=== PATIENT | male | born 1990 | race Caucasian/White ===

== ENCOUNTER 2022-10-15 08:09 | Outpatient (CLI) | payer OTHER, SELFPAY ==
--- NOTE | 2022-11-11 08:40 | WPDSLEEPSTUD ---
Sleep Study Date of Study: 10/15/22 Ordering Provider: Jose M Douglass, Interpreting Physician: Delaney Nichols MD Sleep Study Type: Split Polysomnogram Height: 1.78 m Weight: 136.078 kg Body Mass Index: 43.0 Neck Circumference (inches): 19 [place]: 16 Reason for Sleep Study Hypersomnolence * 10/08/2018, split night protocol, baseline AHI 126.8 lowest desaturation 69%, optimal pressure 19 cm. BMI was 48.7 weight was 360 lb. Sleep History Wing Lisa is a 32-year-old man with a history of obstructive sleep apnea treated with CPAP. He has lost significant weight. The pressure now feels too high and he needs 4 to be adjusted. He tried using an auto PAP but it did not work well for him. He also tried an oral appliance but it did not seem to work as well as a CPAP. He wakes up during the night including in the natural resources manager hours. He has excessive daytime sleepiness. He rarely awakens from sleep feeling short of breath. He frequently awakens at night with heartburn, belching or coughing. He constantly snores loudly enough that others complain about it. He always has trouble sleeping with a cold. He rarely wakes up gasping for breath at night. He frequently has breathing problems at night observed by others. He rarely sweats excessively at night. He does not complain of his heart beating irregularly night. He frequently falls asleep during the day, frequently falls asleep involuntarily but never while driving. He does not have loss of muscle tone with strong emotion. He occasionally has daytime difficulties due to excessive sleepiness. He does not feel paralyzed on waking or falling asleep. He rarely has vivid dreamlike scenes on waking or falling asleep. He rarely feels afraid to go to sleep. He rarely has nightmares. He occasionally remembers his dreams. He constantly has racing thoughts. He frequently feels sad or depressed. He constantly has anxiety, occasionally has muscular tension. He rarely notices parts of her body jerking, rarely kicks at night. He occasionally has morning jaw pain. He rarely grinds his teeth during sleep. He rarely is bothered by pain during the day, rarely awakened by pain at night. Occasionally wakes up feeling stiff in the morning with sore achy muscles and pain in the neck and spine. He has headaches fatigue memory problems concentration difficulties. Normal bedtime 10:00 p.m. falling asleep within 1/2 hour waking multiple times at night at least 8-10 times. While awake she will roll over try to go back to sleep and possibly check the time when his phone. He wakes the morning at 4:30 a.m.. On weekends, sleep bedtime is between 10:00 p.m. 11:00 p.m. and the wake time is 6:00 a.m.. He is getting 5-6 hours of sleep at night but it is not always continuous and it is not restful. He does not take naps in the afternoon or evening. A short nap is not refreshing. He is usually drowsy for 3 hours or longer after waking. Habits: Quit tobacco 6 years ago. No caffeine. No alcohol. He does endorse using recreational substances. [facility] Past Medical History Medical History (Updated 11/11/22 @ 09:00 by Delaney Nichols MD) Asthma AVELINO (obstructive sleep apnea) Social History Social History (Updated 11/11/22 @ 09:01 by Delaney Nichols MD) Smoking status: Former smoker Alcohol use details: none Sleep Procedure This test was performed using the [employer] Sleep[employer]il Monkey Butt multiple channel system including EOG, EEG, submental EMG, EKG, nasal and oral airflow using thermistors and nasal pressure sensors, chest and abdominal belts for body position data, and pulse oximetry. Video monitoring was also performed. The study was scored using CMS guidelines. No sleep aid was taken. After the baseline portion the patient met criteria for a titration using a medium ResMed Quattro fullface mask with heated humidity, initial pressure was CPAP 12 0.3 as the patient was already on CPAP at home. He re
[2022-11-11 10:10] VITALS: BMI 43.0
== END 2022-10-16 06:00 | disposition home or self-care (01) ==
LOC: ANHCSM 08:12
PROVIDERS: Visit Provider Internal Medicine Pulmonary Disease
DX: G47.33 Obstructive sleep apnea (adult) (pediatric) (principal)
CPT/HCPCS: 95811

== ENCOUNTER 2025-05-03 10:46 | Outpatient (CLI) | payer OTHER, SELFPAY ==
--- NOTE | ~2025-05-03 | XR_ITS ---
Clinical Indication: Eosinophilia PA and lateral views of the chest: Comparison: None Findings: The lungs are clear, without evidence of focal consolidation or pleural effusion. Cardiome diastinal silhouette is within normal limits. Bones and soft tissues are unremarkable. Impression: Normal chest. Reviewed, dictated and finalized at location . Impression: Normal chest.
== END 2025-05-03 10:47 | disposition home or self-care (01) ==
LOC: MICIMG 10:48
PROVIDERS: PCP Internal Medicine; Visit Provider Internal Medicine
DX: D72.10 Eosinophilia, unspecified (principal)
CPT/HCPCS: 71046

== ENCOUNTER 2025-06-30 10:20 | Outpatient (CLI) | payer OTHER, SELFPAY ==
--- NOTE | 2025-06-30 10:27 | ECG_ITS ---
Test Date: 2025-06-30 10:41:23 Measurements Intervals [place] Rate: 58 P: 11 AR: 137 QRS: 30 QRSD: 107 T: 18 QT: 413 QTc: 407 Interpretive Statements SINUS BRADYCARDIA LOW QRS VOLTAGE IN PRECORDIAL LEADS BORDERLINE ECG No previous ECG available for comparison Electronically Signed On 06-30-2025 11:13:12 CDT by Boubacar Heath D.O.
--- OUTSIDE RECORDS SUMMARY | 2025-06-30 10:28 | XMS_ITS | Clinical Summary ---
Author Organization [facility] [place] Address [facility] [place] [address] Care Team Providers Care Grinder Set Up Operator Thread Tool Name Role Phone Lizet Andino MD Primary Care Provider [phone] Allergies Active Allergy Reactions Criticality Noted Date Comments Montelukast Shortness of Breath/Wheezing High 2022 Medications cpap medical deviceIndication s:AVELINO (obstructive sleep apnea) CPAP @ 19 wp with heated humidifier. Length of need:99 months; full face mask with headgear every 6 months; mask only every 3 months; 2 cushions per month; Tubing heated 1 every 3 months, water chamber 1 every 6 months, chin strap 1 every 6 months, filters disposable 2 per month, filters reusable 1 per 6 months.. 1 Each 8 Active MULTIVITAMIN ORAL Take by mouth. supp Active CHOLECALCIFEROL, VITAMIN D3, ORAL Take by mouth. Active albuterol sulfate HFA 90 mcg/actuation aerosol inhalerIndicatio ns:Mild intermittent asthma without complication Take 2 Puffs by inhalation every 4 hours as needed for Shortness of Breath. 8.5 Gram 5 Active budesonide-formo teroL (SYMBICORT) 160-4.5 mcg/actuation HFA Aerosol InhalerIndicatio ns:Asthma, unspecified asthma severity, unspecified whether complicated, unspecified whether persistent Take 2 Puffs by inhalation 2 times daily. 30.6 Gram 3 5 Active fexofenadine (SARAH) 180 mg tablet Take 1 Tablet (180 mg) by mouth daily. 90 Tablet 5 Active budesonide-formo teroL (SYMBICORT) 160-4.5 mcg/actuation HFA Aerosol InhalerIndicatio ns:Asthma, unspecified asthma severity, unspecified whether complicated, unspecified whether persistent Take 2 Puffs by inhalation 2 times daily. 30.6 Gram 3 4 025 Discontin ued(Reord er) fexofenadine (SARAH) 180 mg tablet Take 1 Tablet (180 mg) by mouth daily. 90 Tablet 5 025 Discontin ued(Reord er) Active Problems Problem Noted Date Diagnosed Date Eosinophilia 12/02/2024 Elevated LDL cholesterol level 12/07/2020 Recurrent major depressive disorder, in partial remission 11/09/2020 Asthma 03/17/2019 Anxiety 01/04/2019 Overview (08/28/2020): Recently started taking medication. Obstructive sleep apnea syndrome 12/01/2018 Severe obesity (BMI >= 40) 11/30/2018 Prediabetes Resolved Problems Problem Noted Date Diagnosed Date Resolved Date Prediabetes 01/09/2020 08/28/2020 Umbilical hernia without obs truction and without gangrene 03/31/2019 09/05/2021 Current moderate episode of major depressive disorder without prior episode 01/04/2019 9 Periumbilical abdominal pain 01/04/2019 11/09/2020 Snoring 09/17/2018 06/14/2019 Morbid obesity with body mas s index of 40.0-49.9 09/17/2018 01/29/2022 Encounters Date Type Department Care Team Description 06/26/2025 1:40 PM CDT Procedure visit [facility] [place] [address] [place] [phone] Issue of repeat prescription for medication (Primary Dx) 06/26/2025 Refill [facility] [place] [address] [place] [phone] Misti Bonilla, MICHAEL 06/21/2025 External Device Data ST[facility] ABSTRACTION Provider, Abstract 06/20/2025 External Device Data [place] ABSTRACTION Provider, Abstract 06/16/2025 Refill [facility] at [facility] [address] [place] [address] Misti Bonilla ANP Asthma, unspecified asthma severity, unspecified whether complicated, unspecified whether persistent 05/18/2025 External Device Data ST[place] ABSTRACTION Provider, Abstract 05/17/2025 External Device Data ST[place] ABSTRACTION Provider, Abstract 05/17/2025 External Device Data [place] ABSTRACTION Provider, Abstract 05/08/2025 Results Follow-Up [facility] [address] [place] [address] Misti Bonilla, MICHAEL XR CHEST PA AND LATERAL 2 VW 05/08/2025 Orders Only [facility] [address] [place] [phone] Reba Jacome Eosinophilia, unspecified type 04/19/2025 External Device Data ST[place] ABSTRACTION Provider, Abstract 04/19/2025 External Device Data [place] ABSTRACTION Provider, Abstract 04/07/2025 Results Follow-Up [facility] [address] [place] [phone] Lizet Andino MD CBC WITH DIFFERENTIAL, HEMOGLOBIN A1C 04/06/2025 8:00 AM CDT Office Visit [facility] [place] [address] [place] [phone] Lizet Andino MD Eosinophilia, unspecified type (Primary Dx); Moderate persistent asthma, unspecified whether complicated; Prediabetes; Severe obesity (BMI >= 40) ([facility]) 04/04/2025 10:40 AM CDT Procedure visit [facility] [address] [place] [address] Issue of repeat prescription for medication (Primary Dx) 04/04/2025 External Device Data STL ABSTRACTION Provider, Abstract 04/03/2025 Refill [facility] [address] [place] [phone] Misti Bonilla ANP from Last 3 Months Immunizations Immunization Administration Dates Next Due (ADACEL/BOOSTRIX)(10 YR UP) TDAP VACCINE, 0.5ML, IM 08/27/2018 (PFIZER)(12 YR UP) COVID-19 VACCINE - EMERGENCY USE AUTHORIZATION, MRNA, [id number](PF) 30 MCG/0.3 ML IM SUSP 01/24/2021,01/03/2021 INFLUENZA VACCINE QUADRIVALENT 3 YR UP PF IM INFLUENZA VACCINE QUADRIVALENT 6 MOS UP IM 08/09,08/09/2018 INFLUENZA VACCINE QUADRIVALENT 6 MOS UP PF IM ,08/02/2020 INFLUENZA VACCINE TRIVALENT SPLIT VIRUS, (6 MOS UP), 0.5ML (PF), IM 08/03/2024 Family History Medical History Relation Name Comments Anxiety Father Randy Lisa Asthma Father Randy Lisa COPD Father Randy Lisa Diabetes Father Randy Lisa Respiratory Disease Father Randy Lisa COPD Kidney Disease Maternal Grandfather Raúl Rojas Unknown Maternal Grandfather Raúl Rojas Heart Attack Maternal Grandmother Depression Mother Melissa Acevedo Cancer Paternal Grandfather Randy Lisa Sr. Bra in cancer, lung cancer, bone cancer, and pancreatic cancer. Lung Cancer Paternal Grandfather Randy Lisa Sr. Unknown Paternal Grandmother Keshia Lisa Anxiety Sister Relation Name Status Comments Father Randy Lisa Alive Maternal Grandfather Raúl Rojas Maternal Grandmother Mother Melissa Acevedo Alive Paternal Grandfather Randy Lisa Sr. Paternal Grandmother Keshia Lisa Sister Alive Social History Tobacco Use Types Packs/Day Years Used Date Smoking Tobacco: Former Cigarettes Q uit: 08/23/2017 Smokeless Tobacco: Never Alcohol Use Standard Drinks/Week Comments Yes 0 (1 standard drink = 0.6 oz pure alcohol) I rarely drink at all. A few drinks a month. Sex and Gender Information Value Date Recorded Sex Assigned at Male 11/18/2023 10:35 AM CUT FILER Legal Sex Male 9:10 AM CDT Gender Identity Male 11/18/2023 10:35 AM CUT FILER Sexual Orientation Straight 11/18/2023 10 :35 AM CUT FILER Last Filed Vital Signs Vital Sign Reading Time Taken Comments Blood Pressure 118/72 04/06/2025 7:57 AM CDT Pulse 61 04/06/2025 7:57 AM CDT Temperature 36.5 C (97.7 F) 04/06/2025 7:57 AM CDT Respiratory Rate 18 04/06/2025 7:57 AM CDT Oxygen Saturation 98% 04/06/2025 7:57 AM CDT Inhaled Oxygen Concentration - - Weight 128.8 kg (284 lb) 04/06/2025 7:57 AM CDT Height 182.9 cm (6') 04/06/2025 7:57 AM CDT Body Mass Index 38.52 04/06/2025 7:57 AM CDT Plan of Treatment Upcoming Encounters Date Type Department Care Team (Late st Contact Info) Description 07/06/2025 8:00 AM CDT Office Visit [facility] [place] [address] [place] [address] Lizet Andino MD [address] [place] [address] 09/20/2025 8:00 AM CUT FILER Office Visit [facility] [place] [address] [place] [address] Lizet Andino MD [address] [place] [address] Health Maintenance Due Date Last Done Comments HEPATITIS B VACCINES (1 of 3 - 19+ 3-dose series) 2009 HPV VACCINES (1 - 3-dose SCD M series) 2017 COVID-19 Vaccine (3 - 2023-2 5 season) 2024 01/24/2021, 01/03/2021 INFLUENZA VACCINE (#1) 2025 , 07/30/2023, 08/15/2022, Additional history exists DTAP/TDAP/TD VACCINES (2 - T d or Tdap) 08/27/2028 08/27/2018 Medical Devices Implanted Type Area English Tutor Device Identifier Shelf Expiration Date Model / Serial / Lot Mesh Ventralex 3.2in Lrg Circ [id number] - [id number] Implanted:Qty : 1 on 08/23/2021 by Juan Griffin MD at [facility] Mesh N/A: Umbilical CR [employer] [id number] 04/29/2023 [id number] / / [id number] Procedures Procedure Name Priority Date/Time Associated Diagnosis Comments XR CHEST PA AND LATERAL 2 VW Routine 05/03/2025 Eosinophilia, unspecified type HEMOGLOBIN A1C Routine 04/06/2025 8:38 AM CDT Prediabetes CBC WITH DIFFERENTIAL Routine 04/06/2025 8:38 AM CDT Eosinophilia, unspecified type from Last 3 Months Results * XR CHEST PA AND LATERAL 2 VW (05/03/2025) Anatomical Region Laterality Modality Chest Other us Lizet Andino MD DIAGNOSTIC IMAGING ORDERABLES Final Result * (ABNORMAL) CBC WITH DIFFERENTIAL (04/06/2025 8:38 AM CDT) WBC 7.1 3.8 - 10.8 Thousand/ uL [facility] RBC 4.75 4.20 - 5.80 Million/u L [facility] HEMOGLOBIN 13.7 13.2 - 17.1 g/dL [facility] HEMATOCRIT 43.6 38.5 - 50.0 % [facility] MCV 91.8 80.0 - 100.0 fL [facility] MCH 28.8 27.0 - 33.0 pg [facility] MCHC 31.4(L) 32.0 - 36.0 g/dL [facility] Comment: For adults, a slight decrease in the calculated MCHC value (in the range of 30 to 32 g/dL) is most likely not clinically significant; however, it should be interpreted with caution in correlation with other red cell parameters and the patient's clinical condition. RDW 13.7 11.0 - 15.0 % [facility] PLATELETS 286 140 - 400 Thousand/ uL [facility] MPV 11.0 7.5 - 12.5 fL [facility] NEUTROPHIL ABSOLUTE 4,558 1,500 - 7,800 cells/uL [facility] LYMPHOCYTE ABSOLUTE 1,385 850 - 3,900 cells/uL [facility] MONOCYTE ABSOLUTE 447 200 - 950 cells/uL [facility] EOSINOPHIL ABSOLUTE 667(H) 15 - 500 cells/uL [facility] BASOPHILS ABSOLUTE 43 0 - 200 cells/uL [facility] NEUTROPHIL 64.2 % [facility] LYMPHOCYTES 19.5 % [facility] MONOCYTE 6.3 % [facility] EOSINOPHILS 9.4 % [facility] BASOPHILS 0.6 % [facility] Comment: Test Performed at: [place] [address] [phone] [facility] Best Blood 04/06/2025 8:38 AM CDT 04/07/2025 2:15 AM CDT Lizet Andino MD HEMATOLOGY ORDERABLES Final Re sult [facility] [phone] [place] [address] [address] [phone] * HEMOGLOBIN A1C (04/06/2025 8:38 AM CDT) HEMOGLOBIN A1C 5.6 <5.7 % of total Hgb [facility] Comment: For the purpose of screening for the presence of diabetes: <5.7% Consistent with the absence of diabetes 5.7-6.4% Consistent with increased risk for diabetes (prediabetes) > or =6.5% Consistent with diabetes This assay result is consistent with a decreased risk of diabetes. Currently, no consensus exists regarding use of hemoglobin A1c for diagnosis of diabetes in children. According to [place] Diabetes Association (ADA) guidelines, hemoglobin A1c <7.0% represents optimal control in non- diabetic patients. Different metrics may apply to specific patient populations. Standards of Medical Care in Diabetes(ADA). ESTIMATED AVERAGE GLUCOSE (MG/DL) 114 mg/dL [facility] ESTIMATED AVERAGE GLUCOSE (MMOL/L) 6.3 mmol/L [facility] Comment: Test Performed at: [facility] [address] [place] [phone] Katiana Best Blood 04/06/2025 8:38 AM CDT 04/07/2025 2:15 AM CDT us Lizet Andino MD CHEMISTRY ORDERABLES Final Res ult [facility] [phone] [facility] [address] [place] [phone] from Last 3 Months Insurance [employer] ALLEGIANCE OPEN ACCESS ALLEGIANCE OPEN ACCESS TAMIE WELLS [phone] * Guarantor: [employer] Account Type Relation to Patient Date of Phone Billing Address Corporate Employer ATTN: ABDIRAHMNA HECK [address] [address] Advance Directives For more information, please contact: [phone] * Full Code (Latest Code Status on File) Date Activated Date Inactivated Comments 08/23/2021 9:50 AM 08/23/2021 7:06 PM * Full Code Date Activated Date Inactivated Comments 08/23/2021 9:40 AM 08/23/2021 9:50 AM Care Teams Grinder Set Up Operator Thread Tool Relationship Specialty Start Date End Date Lizet Andino MD [address] [place] [address] PCP - General Internal Medicine 05/09/24
--- OUTSIDE RECORDS SUMMARY | 2025-06-30 10:28 | XMS_ITS | Encounter Summary ---
Author Organization [facility] Address [address] [place] [address] Care Team Providers Care Software Tester Name Role Phone Lizet Andino MD Primary Care Provider [phone] Encounter Details Date Type Department Care Team (Late st Contact Info) Description 05/08/2025 Results Follow-Up [facility] at [facility] [place] [address] [place] [address] Misti Bonilla, ANP [address] [facility] [address] [place] [address] XR CHEST PA AND LATERAL 2 VW Social History Tobacco Use Types Packs/Day Years Used Date Smoking Tobacco: Former Cigarettes Q uit: 08/23/2017 Smokeless Tobacco: Never Alcohol Use Standard Drinks/Week Comments Yes 0 (1 standard drink = 0.6 oz pure alcohol) I rarely drink at all. A few drinks a month. Sex and Gender Information Value Date Recorded Sex Assigned at Male 11/18/2023 10:35 AM CHURCH ORGANIST Legal Sex Male 9:10 AM CDT Gender Identity Male 11/18/2023 10:35 AM CHURCH ORGANIST Sexual Orientation Straight 11/18/2023 10 :35 AM CHURCH ORGANIST documented as of this encounter Miscellaneous Notes * Result Encounter Note - Demi Rogers RN - 05/08/2025 8:22 AM CDT Called patient and relayed message regarding CXR results. Patient verbalized understanding. * Result Encounter Note - Misti Bonilla ANP - 05/08/2025 7:53 AM CDT Contact patient regarding result. Advise pt CXR is normal. Continue inhaler treatment and FU as planned. documented in this encounter Plan of Treatment Upcoming Encounters Date Type Department Care Team (Late st Contact Info) Description 07/06/2025 8:00 AM CDT Office Visit [facility] [place] [address] [place] [phone] Lizet Andino MD [address] [place] [address] 09/20/2025 8:00 AM CHURCH ORGANIST Office Visit [facility] at [facility] [place] [address] [place] [phone] Lizet Andino MD [address] [place] [phone] documented as of this encounter Visit Diagnoses Not on filedocumented in this encounter Additional Health Concerns Assessment Noted Time PHQ-9 Depression Total Score: 4 01/05/20 25 11:00 AM CHURCH ORGANIST documented as of this encounter Care Teams Software Tester Relationship Specialty Start Date End Date Lizet Andino MD [address] [place] [phone] PCP - General Internal Medicine 05/09/24 documented as of this encounter
--- OUTSIDE RECORDS SUMMARY | 2025-06-30 10:28 | XMS_ITS | Clinical Summary ---
Author Organization [facility] [employer] Address [address] [place] [address] Care Team Providers Care Environmental Technical Officer Name Role Phone VelaKatelin HISTOLOGIC TECHNICIAN-CREDIT DIRECTOR Primary Care Pro vider Unavailable Source Comments [facility],non-owned Affiliates and Associated Physician Practices is amultiple site organization consisting of ambulatory clinics and hospital sitesin [place], [place], [place] and [place]. This disclosure is being madepursuant to the Care Everywhere program and may not contain all information available regarding this patient. Last updated 18.[facility] [employer] Allergies Active Allergy Reactions Criticality Noted Date Comments Montelukast 09/16/2016 Medications * Be aware that medications may not be up to date on this document. Alwaysverify current medications with the patient. No known medications Active Problems Problem Noted Date Diagnosed Date Prediabetes 01/09/2020 Class 3 severe obesity due t o excess calories with serious comorbidity and body mass index (BMI) of 45.0 to 49.9 in adult 01/09/2020 Umbilical hernia without obstruction and without gangrene 03/31/2019 Asthma 03/17/2019 Obstructive sleep apnea syndrome 12/01/2018 Social History Tobacco Use Types Packs/Day Years Used Date Smoking Tobacco: Never Smokeless Tobacco: Never Sex and Gender Information Value Date Recorded Sex Assigned at Not on file Legal Sex Male 1:54 PM MAINTAINER PLANT Gender Identity Not on file Sexual Orientation Not on file Last Filed Vital Signs Vital Sign Reading Time Taken Comments Blood Pressure 126/82 01/03/2020 10:27 AM MAINTAINER PLANT Pulse 74 01/03/2020 10:27 AM MAINTAINER PLANT Temperature 36.6 C (97.9 F) 09/23/2016 12:40 PM MAINTAINER PLANT Respiratory Rate 20 09/23/2016 12:40 PM MAINTAINER PLANT Oxygen Saturation - - Inhaled Oxygen Concentration - - Weight 160.8 kg (354 lb 8 oz) 01/03/2020 10:27 A M MAINTAINER PLANT Height 179.7 cm (5' 10.75) 01/03/2020 10:27 AM MAINTAINER PLANT Body Mass Index 49.79 01/03/2020 10:27 AM MAINTAINER PLANT Plan of Treatment Health Maintenance Due Date Last Done Comments HIV SCREENING 2005 HEPATITIS C SCREENING 11/02/2008 DTAP/TDAP/TD VACCINES (1 - Tdap) 2009 HEPATITIS B VACCINE (1 of 3 - 19+ 3-dose series) 2009 PNEUMOCOCCAL VACCINE (1 of 2 - PCV) 2009 HPV VACCINE (1 - 3-dose SCDM series) 2017 COVID-19 VACCINE (1 - 2023-2 5 season) 2024 DEPRESSION SCREENING 11/02/2024 INFLUENZA VACCINE (#1) 2025 9, 08/09/2018 ZOSTER VACCINE (1 of 2) 2040 HIB VACCINE Aged Out No longer eligi ble based on patient's age to complete this topic MENINGOCOCCAL (Group B) VACCINE SHARED DECISION-MAKING Aged Out No longer eligible based on patient's age to complete this topic MENINGOCOCCAL GROUPS A/C/Y/W VACCINE Aged Out No longer eligible b ased on patient's age to complete this topic [place] [address] [place] [address] Care Teams Environmental Technical Officer Relationship Specialty Start Date End Date Katelin Vela, HISTOLOGIC TECHNICIAN-CREDIT DIRECTOR PCP - General Nurse Practitioner 01/03/20
== END 2025-06-30 10:21 | disposition home or self-care (01) ==
LOC: ANHIMG 10:22 → ANHCARD 10:27
PROVIDERS: PCP Internal Medicine; Visit Provider Nurse Practitioner Family
DX: I49.9 Cardiac arrhythmia, unspecified (principal)
CPT/HCPCS: 93005

== ENCOUNTER 2025-07-24 09:17 | Outpatient (CLI) | payer OTHER, SELFPAY ==
--- OUTSIDE RECORDS SUMMARY | 2025-07-24 10:07 | XMS_ITS | Clinical Summary ---
Author Organization [facility] [employer] Address [address] [place] [address] Care Team Providers Care Battery Repairer Name Role Phone VelaKatelin TRAINING ADMINISTRATOR-PROCUREMENT ENGINEER Primary Care Pro vider Unavailable Source Comments [facility],non-owned Affiliates and Associated Physician Practices is amultiple site organization consisting of ambulatory clinics and hospital sitesin [place], [place], [place] and [place]. This disclosure is being madepursuant to the Care Everywhere program and may not contain all information available regarding this patient. Last updated 18.[facility] [employer] Allergies Active Allergy Reactions Criticality Noted Date [...] on file Legal Sex Male 1:54 PM TELEPHONE CLAIMS REPRESENTATIVE Gender Identity Not on file Sexual Orientation Not on file Last Filed Vital Signs Vital Sign Reading Time Taken Comments Blood Pressure 126/82 01/03/2020 10:27 AM TELEPHONE CLAIMS REPRESENTATIVE Pulse 74 01/03/2020 10:27 AM TELEPHONE CLAIMS REPRESENTATIVE Temperature 36.6 C (97.9 F) 09/23/2016 12:40 PM TELEPHONE CLAIMS REPRESENTATIVE Respiratory Rate 20 09/23/2016 12:40 PM TELEPHONE CLAIMS REPRESENTATIVE Oxygen Saturation - - Inhaled Oxygen Concentration - - Weight 160.8 kg (354 lb 8 oz) 01/03/2020 10:27 A M TELEPHONE CLAIMS REPRESENTATIVE Height 179.7 cm (5' 10.75) 01/03/2020 10:27 AM TELEPHONE CLAIMS REPRESENTATIVE Body Mass Index 49.79 01/03/2020 10:27 AM TELEPHONE CLAIMS REPRESENTATIVE Plan of Treatment Health Maintenance Due Date Last Done Comments HIV SCREENING 2005 HEPATITIS C SCREENING 11/02/2008 DTAP/TDAP/TD VACCINES (1 - Tdap) 2009 HEPATITIS B VACCINE (1 of 3 - 19+ 3-dose series) 2009 PNEUMOCOCCAL VACCINE (1 of 2 - PCV) 2009 HPV VACCINE (1 - 3-dose SCDM series) 2017 DEPRESSION SCREENING 11/02/2024 COVID-19 VACCINE (1 - 2023-2 5 season) 2025 INFLUENZA VACCINE (#1) 2025 9, 08/09/2018 ZOSTER [...] patient's age to complete this topic [place] [address] [address] [address] [place] [address] Care Teams Battery Repairer Relationship Specialty Start Date End Date Katelin Vela, TRAINING ADMINISTRATOR-PROCUREMENT ENGINEER PCP - General Nurse Practitioner 01/03/20
--- OUTSIDE RECORDS SUMMARY | 2025-07-24 10:07 | XMS_ITS | Clinical Summary ---
Author Organization [employer] [place] Address [facility] [place] [address] Care Team Providers Care Cone Winder Name Role Phone Lizet Andino MD Primary Care Provider Allergies Active Allergy Reactions Criticality Noted Date [...] by mouth daily. 90 Tablet 5 Active fexofenadine (SARAH) 180 mg tablet Take 1 Tablet (180 mg) by mouth daily. 90 Tablet 025 Discontin ued(Reord er) Active Problems Problem [...] Encounters Date Type Department Care Team Description 07/18/2025 External Device Data ST[facility] ABSTRACTION Provider, Abstract 07/13/2025 Results Follow-Up [facility] at [facility] [address] [place] [address] Lizet Andino MD CBC WITH DIFFERENTIAL 07/06/2025 8:00 AM CDT Office Visit [facility] [place] [address] [place] [phone] Lizet Andino MD Prediabetes (Primary Dx); Severe obesity (BMI 35.0-39.9) with comorbidity (CMS/HCC); Eosinophilia, unspecified type; Mild persistent asthma without complication 06/26/2025 1:40 PM CDT Procedure visit [facility] at [facility] [address] [place] [id number] Issue of repeat prescription for medication (Primary Dx) 06/26/2025 Refill [facility] at [facility] [address] [place] [address] Mitsi Bonilla ANP 06/21/2025 External Device Data STL ABSTRACTION Provider, Abstract 06/20/2025 External Device Data STL ABSTRACTION Provider, Abstract 06/16/2025 Refill [facility] at [facility] [address] [place] [address] Misti Bonilla, MICHAEL Asthma, unspecified asthma severity, unspecified whether complicated, unspecified whether persistent 05/18/2025 External Device Data STL ABSTRACTION Provider, Abstract 05/17/2025 External Device Data STL ABSTRACTION Provider, Abstract 05/17/2025 External Device Data STL ABSTRACTION Provider, Abstract 05/08/2025 Results Follow-Up [facility] at [place] [address] [place] [address] Misti Bonilla, MICHAEL XR CHEST PA AND LATERAL 2 VW 05/08/2025 Orders Only [facility] at [place] [address] [place] [address] Reba Jacome Eosinophilia, unspecified type from Last 3 Months Immunizations Immunization Administration Dates Next Due (ADACEL/BOOSTRIX)(10 YR UP) TDAP VACCINE, 0.5ML, IM 08/27/2018 (PFIZER)(12 YR UP) COVID-19 VACCINE - EMERGENCY USE AUTHORIZATION, MRNA, [id number](PF) 30 MCG/0.3 ML IM SUSP 01/24/2021,01/03/2021 INFLUENZA [...] Sex Assigned at Male 11/18/2023 10:35 AM NEWS VIDEOTAPE EDITOR Legal Sex Male 9:10 AM CDT Gender Identity Male 11/18/2023 10:35 AM NEWS VIDEOTAPE EDITOR Sexual Orientation Straight 11/18/2023 10 :35 AM NEWS VIDEOTAPE EDITOR Last Filed Vital Signs Vital Sign Reading Time Taken Comments Blood Pressure 122/76 07/06/2025 8:08 AM CDT Pulse 63 07/06/2025 8:08 AM CDT Temperature 36.5 C (97.7 F) 04/06/2025 7:57 AM CDT Respiratory Rate 18 07/06/2025 8:08 AM CDT Oxygen Saturation 97% 07/06/2025 8:08 AM CDT Inhaled Oxygen Concentration - - Weight 129.7 kg (286 lb) 07/06/2025 8:08 AM CDT Height 182.9 cm (6') 07/06/2025 8:08 AM CDT Body Mass Index 38.79 07/06/2025 8:08 AM CDT Plan of Treatment Upcoming Encounters Date Type Department Care Team (Late st Contact Info) Description 09/20/2025 8:00 AM NEWS VIDEOTAPE EDITOR Office Visit [facility] at [facility] [place] [address] [place] [address] Lizet Andino MD [address] [place] [address] 01/03/2026 7:30 AM NEWS VIDEOTAPE EDITOR Office Visit [facility] at [facility] [place] [address] [place] [address] Lizet Andino MD [address] [place] [address] Health Maintenance Due Date Last Done Comments HEPATITIS B VACCINES (1 of 3 - 19+ 3-dose series) 2009 HPV VACCINES (1 - 3-dose SCD M series) 2017 INFLUENZA VACCINE (#1) 2025 , 07/30/2023, 08/15/2022, Additional history exists COVID-19 Vaccine ( - 2024-2 6 season) 2025 01/24/2021, 01/03/2021 DTAP/TDAP/TD VACCINES (2 - T d or Tdap) 08/27/2028 08/27/2018 Medical Devices Implanted Type Area Cable Strander Device Identifier Shelf Expiration Date Model / Serial / Lot Mesh Ventralex 3.2in Lrg Circ [id number] - [id number] Implanted:Qty : 1 on 08/23/2021 by Juan Griffin MD at [facility] Mesh N/A: Umbilical CR [employer] [id number] 04/29/2023 [id number] / / [id number] Procedures Procedure Name Priority Date/Time Associated Diagnosis Comments CBC WITH DIFFERENTIAL Routine 07/06/2025 8:47 AM CDT Eosinophilia, unspecified type XR CHEST PA AND LATERAL 2 VW Routine 05/03/2025 Eosinophilia, unspecified type from Last 3 Months Results * (ABNORMAL) CBC WITH DIFFERENTIAL (07/06/2025 8:47 AM CDT) WBC 7.6 3.8 - 10.8 Thousand/ uL [facility] RBC 5.12 4.20 - 5.80 Million/u L [facility] HEMOGLOBIN 14.7 13.2 - 17.1 g/dL [facility] HEMATOCRIT 46.4 38.5 - 50.0 % [facility] MCV 90.6 80.0 - 100.0 fL [facility] MCH 28.7 27.0 - 33.0 pg [facility] MCHC 31.7(L) 32.0 - 36.0 g/dL [facility] Comment: For adults, a slight decrease in the calculated MCHC value (in the range of 30 to 32 g/dL) is most likely not clinically significant; however, it should be interpreted with caution in correlation with other red cell parameters and the patient's clinical condition. RDW 13.2 11.0 - 15.0 % [facility] PLATELETS 257 140 - 400 Thousand/ uL [facility] MPV 10.8 7.5 - 12.5 fL [facility] NEUTROPHIL ABSOLUTE 4,925 1,500 - 7,800 cells/uL [facility] LYMPHOCYTE ABSOLUTE 1,262 850 - 3,900 cells/uL [facility] MONOCYTE ABSOLUTE 509 200 - 950 cells/uL [facility] EOSINOPHIL ABSOLUTE 844(H) 15 - 500 cells/uL [facility] BASOPHILS ABSOLUTE 61 0 - 200 cells/uL [facility] NEUTROPHIL 64.8 % [facility] LYMPHOCYTES 16.6 % [facility] MONOCYTE 6.7 % [facility] EOSINOPHILS 11.1 % [facility] BASOPHILS 0.8 % [facility] Comment: Test Performed at: [facility] [place] [address] [address] [place] [address] Katiana Swenson Vo Blood 07/06/2025 8:47 AM CDT 07/07/2025 12:52 AM CDT us Lizet Andino MD HEMATOLOGY ORDERABLES Final Re sult [facility] [phone] [facility] [address] [address] [place] [address] * XR CHEST PA AND LATERAL 2 VW (05/03/2025) Anatomical Region Laterality Modality Chest Other us Lizet Andion MD DIAGNOSTIC IMAGING ORDERABLES Final Result from Last 3 Months Insurance [employer] OPEN ACCESS ALLEGIANCE OPEN ACCESS * Guarantor: [employer] Account Type Relation to Patient Date of Phone Billing Address Corporate Employer ATTN: ABDIRAHMAN HECK [address] [address] Advance Directives For more information, please contact: [phone] * Full Code (Latest Code Status on File) Date Activated Date Inactivated Comments 08/23/2021 9:50 AM 08/23/2021 7:06 PM * Full Code Date Activated Date Inactivated Comments 08/23/2021 9:40 AM 08/23/2021 9:50 AM Care Teams Cone Winder Relationship Specialty Start Date End Date Lizet Andino MD [address] [place] [address] [place] [address] PCP - General Internal Medicine 05/09/24
--- NOTE | 2025-07-24 14:14 | WPDPFTINT ---
PFT Procedure Performed PFT Procedure Performed Spirometry with Pre/Post Bronchodilator Plethysmography (Lung Vol) Diffusing Cap (DLCO) Flow Vol Loop PFT Interpretation This is a pulmonary function test with pre and post-bronchodilator spirometry, plethysmography and diffusing capacity. The test was performed and results interpreted in accordance with the 2019 and 2005 ATS/ERS Task Force guidelines respectively using the Global Lung Function Initiative-2012 reference equations. Patient demonstrated good effort and cooperation. Reproducibility criteria were met. The quality of the pre bronchodilator spirometry maneuver was Grade A and post bronchodilator spirometry maneuver was Grade A. Findings: Spirometry: The contour the inspiratory and expiratory flow tracing are normal. The pre bronchodilator FVC is 4.72 L, 85% predicted. The pre bronchodilator FEV1 is 3.50 L, 78% predicted. The pre bronchodilator FEV1: FVC CT ratio 74%. The post bronchodilator FVC is 4.86 L, representing a 3% increase. The post bronchodilator FEV1 is 3.77 L, representing an 8% increase. The post bronchodilator FEV1: FVC ratio is 78%. Plethysmography: The total lung capacity is 6.71 L, 95% predicted. The functional residual capacity is 3.30 L, 94% predicted. The residual volume is 1.60 L, 91% predicted. Diffusing capacity: The diffusing capacity unadjusted for hemoglobin and carboxyhemoglobin is 29.7, 85% predicted. The diffusing capacity adjusted for alveolar volume is 5.18, 104% predicted. Impression: The FEV1 is less than 80% predicted and the FEV1: FVC ratio is greater than 70% consistent with Preserved Ratio Impaired Spirometry (PRISm) with a normal FVC. There is no significant improvement after inhaling a single dose of albuterol. The lung volumes are normal. The diffusing capacity is normal. There are no prior studies for comparison
== END 2025-07-24 09:18 | disposition home or self-care (01) ==
LOC: ANHPFT 09:17
PROVIDERS: PCP Internal Medicine; Visit Provider Nurse Practitioner Family
DX: J45.909 Unspecified asthma, uncomplicated (principal)
CPT/HCPCS: 94060; 94726; 94729